=== PATIENT | female | born 1975 | race Caucasian/White ===

== ENCOUNTER 2018-12-31 18:12 | Emergency (ER) | payer OTHER ==
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
[2018-12-31] MEDS ORDERED: Ketorolac Tromethamine 30 MG/ML VIAL ONE (19:18)
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
== END 2018-12-31 19:46 | disposition home or self-care (01) ==
LOC: SCSER 18:12
DX: S16.1XXA Strain of muscle, fascia and tendon at neck level, initial encounter (principal); S70.01XA Contusion of right hip, initial encounter; F41.9 Anxiety disorder, unspecified; Z79.899 Other long term (current) drug therapy; V43.62XA Car passenger injured in collision with other type car in traffic accident, initial encounter
CPT/HCPCS: 70450; 72125; 72170; 96372; J1885

== ENCOUNTER 2020-08-18 09:41 | Outpatient (CLI) | payer OTHER ==
--- NOTE | 2020-08-18 10:49 | RAD ---
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 FINDINGS: No fracture, subluxation, or bony destruction is seen. There are degenerative changes at the L5-S1 l evel. POS: [facility]
== END 2020-08-18 09:42 | disposition home or self-care (01) ==
LOC: BICRAD 09:41
PROVIDERS: ATTEND Family Medicine
DX: M47.816 Spondylosis without myelopathy or radiculopathy, lumbar region (principal); M46.1 Sacroiliitis, not elsewhere classified; M47.817 Spondylosis without myelopathy or radiculopathy, lumbosacral region
CPT/HCPCS: 72100

== ENCOUNTER 2020-08-27 08:03 | Outpatient (CLI) | payer OTHER ==
--- NOTE | 2020-08-27 10:36 | BD ---
BONE DENSITOMETRYUSING DEXA: HISTORY: Postmenopausal screening for osteoporosis. FINDINGS: Lumbar Spine: BMD (g/cm2) L1 0.810 T-Score: -1.6 Z-Score: -1.3 L2 0.858 T-Score: -1.5 Z-Score: -1.1 L3 0.812 T-Score: -2.5 Z-Score: -2.0 L4 0.895 T-Score: -1.5 Z-Score: -1.0 L1-L4 0.846 T-Score: -1.8 Z-Score: -1.4 Femoral Neck: 0.588 T-Score: -2.3 Z-Score: -1.9 Total Femur: 0.686 T-Score: -2.1 Z-Score: -1.8 Impression: Osteopenia. POS: [facility]
--- NOTE | 2020-09-11 09:32 | MMO ---
Bilateral MAMMO Bilat Screen [facility]. CLINICAL HISTORY: Patient is 44 years old and is seen for screening. The patient has no family history of breast cancer. The patient has a history of Skin cancer in 2019. VIEWS: The views performed were: bilateral craniocaudal with tomosynthesis; bilateral mediolateral oblique with tomosynthesis; and right exaggerated craniocaudal. FILMS COMPARED: The present examination has been compared to a prior imaging study performed at [facility] on 11/03/2016. This study has been interpreted with the assistance of computer-aided detection. MAMMOGRAM FINDINGS: The breasts are heterogeneously dense, which could obscure a lesion on mammography. There are no suspicious masses, suspicious calcifications, or new areas of architectural distortion. IMPRESSION: THERE IS NO MAMMOGRAPHIC EVIDENCE OF MALIGNANCY. A ROUTINE FOLLOW-UP MAMMOGRAM IN 1 YEAR IS RECOMMENDED. THE RESULTS OF THIS EXAM WERE SENT TO THE PATIENT. ACR BI-RADS Category 1 - Negative MAMMOGRAPHY NOTE: 1. A negative mammogram report should not delay a biopsy if a dominant of clinically suspicious mass is present. 2. Approximately 10% to 15% of breast cancers are not detected by mammography. 3. Adenosis and dense breasts may obscure an underlying neoplasm. Reported by: JERROD SALINAS MD Electonically Signed: [id number]
== END 2020-08-27 08:04 | disposition home or self-care (01) ==
LOC: BICMAMMO 08:03
PROVIDERS: ATTEND Family Medicine
DX: Z12.31 Encounter for screening mammogram for malignant neoplasm of breast (principal); Z13.820 Encounter for screening for osteoporosis; E55.9 Vitamin D deficiency, unspecified; M81.0 Age-related osteoporosis without current pathological fracture; M85.859 Other specified disorders of bone density and structure, unspecified thigh; Z85.820 Personal history of malignant melanoma of skin
CPT/HCPCS: 77063; 77067; 77080